=== PATIENT | female | born 1970 | race Hispanic/Latino ===

== ENCOUNTER 2017-06-04 10:46 | Emergency (ER) | payer BC ==
[2017-06-04 10:59] VITALS: BMI 19.3
[2017-06-04] MEDS ORDERED: Sodium Chloride 0.9% 1,000 ML IV STA (11:28)
[2017-06-04 11:53] LABS: BASO % 0.3 % (0.0-2.0); EOS % 0.1 % (0.0-4.0); LYMPH # 0.6 K/uL (1.0-4.3); LYMPH % 5.1 % (20.0-40.0); MEAN CELL VOLUME 91.9 fl (81.0-99.0); MEAN CORPUSCULAR HGB CONC 33.8 g/dL (33.0-37.0); MEAN PLATELET VOLUME 8.9 fl (7.2-11.7); MONO # 0.4 K/uL (0.0-0.8); MONO % 3.6 % (0.0-10.0); NEUT # 11.2 K/uL (1.8-7.0); NEUT % 90.9 % (50.0-75.0); PLATELET COUNT 183 K/uL (130-400); RED CELL DISTRIBUTION WIDTH 12.9 % (11.5-14.5); WHITE BLOOD COUNT 12.3 K/uL (4.8-10.8)
[2017-06-04 12:10] LABS: ALB/GLOB RATIO 1.5 (1.0-2.1); ALKALINE PHOSPHATASE 61 U/L (38-126); ALT/SGPT 27 U/L (9-52); AST/SGOT 27 U/L (14-36); BILIRUBIN,TOTAL 0.5 mg/dl (0.2-1.3); BLOOD UREA NITROGEN 10 mg/dl (7-17); CALCIUM 9.2 mg/dL (8.4-10.2); CARBON DIOXIDE 22 mmol/L (22-30); CHLORIDE 102 mmol/L (98-107); GFR AFRICAN-AMERICAN > 60; GLUCOSE,RANDOM 97 mg/dL (65-105); LIPASE 118 U/L (23-300); POTASSIUM 3.4 MMOL/L (3.6-5.0); SODIUM 137 mmol/l (132-148); TOTAL PROTEIN 7.4 G/DL (6.3-8.2)
--- NOTE | 2017-06-04 12:17 | ED PDOC ---
HPI: Abdomen Time Seen by Provider: 06/04/17 10:55 Chief Complaint (Nursing): Abdominal Pain Chief Complaint (Provider): Abdomianl pain History Per: Patient History/Exam Limitations: no limitations Onset/Duration Of Symptoms: Days (x1) Location Of Pain/Discomfort: Suprapubic Associated Symptoms: Vomiting, Diarrhea, Other (Dizziness & lightheadedness). denies: Fever, Chest Pain Additional Complaint(s): Jenifer Hager is a 46 year old female, with no past medical history, who presents to the emergency department complaining of constant lower abdominal pain associated with vomit, diarrhea, dizziness and lightheadedness onset since this morning. Patient reports the pain was worst earlier this morning but now feels better. She also reports loose stool and 1 episode of vomiting earlier today. Patient states she biked and then she took the bus, during which she began feeling dizzy. When she got up the pain got worst and felt dizzy like she was about to pass out. She states she developed pressure in her head and lightheaded with numbness and tingling in her hands. Patient denies chest pain or fever. She states she had an ovarian cyst removed many years ago. No further medical complaints. PMD: None provided. Past Medical History Reviewed: Historical Data, Nursing Documentation, Vital Signs Vital Signs: Last Vital Signs Temp 97.6 F 06/04/17 17:13 Pulse 78 06/04/17 17:13 Resp 19 06/04/17 17:13 BP 120/78 06/04/17 17:13 Pulse Ox 98 06/04/17 17:13 - Surgical History Other surgeries: Ovarian cyst removal - Family History Family History: States: Unknown Family Hx - Social History Current smoker - smoking cessation education provided: No Alcohol: Social Drugs: Denies - Allergies Allergies/Adverse Reactions: Allergies Allergy/AdvReac Type Severity Reaction Status Date / Time No Known Allergies Allergy Verified 06/04/17 11:06 Review of Systems ROS Statement: Except As Marked, All Systems Reviewed And Found Negative Constitutional: Negative for: Fever Cardiovascular: Positive for: Light Headedness. Negative for: Chest Pain Gastrointestinal: Positive for: Vomiting, Abdominal Pain (lower), Diarrhea Neurological: Positive for: Numbness (and tingling in her hands), Dizziness Physical Exam - Reviewed Nursing Documentation Reviewed: Yes Vital Signs Reviewed: Yes - Physical Exam Appears: Positive for: Well (appears comfortable), Non-toxic, No Acute Distress Head Exam: Positive for: ATRAUMATIC, NORMAL INSPECTION, NORMOCEPHALIC Skin: Positive for: Normal Color, Warm, Dry Eye Exam: Positive for: Normal appearance, EOMI, PERRL Neck: Positive for: Normal, Painless ROM, Supple Cardiovascular/Chest: Positive for: Regular Rate, Rhythm. Negative for: Murmur Respiratory: Positive for: Normal Breath Sounds. Negative for: Respiratory Distress Gastrointestinal/Abdominal: Positive for: Normal Exam, Bowel Sounds, Soft, Tenderness (suprapubic and lower abdominal) Back: Positive for: Normal Inspection (No midline tenderness). Negative for: L CVA Tenderness, R CVA Tenderness Extremity: Positive for: Normal ROM. Negative for: Pedal Edema, Deformity, Swelling Neurologic/Psych: Positive for: Alert, Oriented. Negative for: Motor/Sensory Deficits - Laboratory Results Result Diagrams: 06/04/17 11:45 06/04/17 11:45 - ECG ECG Rhythm: Positive for: Normal QRS, Sinus Rhythm (Normal). Negative for: ST/ T Changes Rate: 78 O2 Sat by Pulse Oximetry: 100 (RA) Pulse Ox Interpretation: Normal - Progress Re-evaluation Time: 16:35 Condition: Re-examined, Improved Medical Decision Making Medical Decision Making: Initial Impression: abdominal pain and dizziness. Differential includes: UTI and gastroenteritis, rule out appendicitis. For dizziness considered dehydration , vasovagal near syncope. Initial Plan: --Abd & Pelvis IV contrast only [CT] --EKG --Comp Metabolic Panel --Lipase --Troponin I --Urine --CBC w/ differential --Pepcid 20 mg IVP --NS IV 1,000 ml @ 1,000 mls/hr --Zofran Inj 4 mg IVP --reevaluation 1434 Abd & Pelvis CT FINDINGS: LOWER THORAX: Unremarkable. LIVER: Unremarkable. No gross lesion or ductal dilatation. GALLBLADDER AND BILE DUCTS: Unremarkable. PANCREAS: Unremarkable. No gross lesion or ductal dilatation. SPLEEN: Unremarkable. ADRENALS: Unremarkable. No mass. KIDNEYS AND URETERS: Unremarkable. No hydronephrosis. No solid mass. VASCULATURE: Unremarkable. No aortic aneurysm. BOWEL: Unremarkable. No obstruction. No gross mural thickening. APPENDIX: Not identified. No secondary findings to suggest acute appendicitis. PERITONEUM: Unremarkable. No free fluid. No free air. LYMPH NODES: Unremarkable. No enlarged lymph nodes. BLADDER: Unremarkable. REPRODUCTIVE: Normal uterus BONES: No acute fracture. OTHER FINDINGS: None. IMPRESSION: No acute abnormality. Unremarkable examination. Time: 14:34 --Abd/Pelvis CT FINDINGS: LOWER THORAX: Unremarkable. LIVER: Unremarkable. No gross lesion or ductal dilatation. GALLBLADDER AND BILE DUCTS: Unremarkable. PANCREAS: Unremarkable. No gross lesion or ductal dilatation. SPLEEN: Unremarkable. ADRENALS: Unremarkable. No mass. KIDNEYS AND URETERS: Unremarkable. No hydronephrosis. No solid mass. VASCULATURE: Unremarkable. No aortic aneurysm. BOWEL: Unremarkable. No obstruction. No gross mural thickening. APPENDIX: Not identified. No secondary findings to suggest acute appendicitis. PERITONEUM: Unremarkable. No free fluid. No free air. LYMPH NODES: Unremarkable. No enlarged lymph nodes. BLADDER: Unremarkable. REPRODUCTIVE: Normal uterus BONES: No acute fracture. OTHER FINDINGS: None. IMPRESSION: No acute abnormality. Unremarkable examination. Scribe Attestation: Documented by Bethel Young, acting as a scribe for Warner Howell MD Provider Scribe Attestation: All medical record entries made by the Scribe were at my direction and personally dictated by me. I have reviewed the chart and agree that the record accurately reflects my personal performance of the history, physical exam, medical decision making, and the department course for this patient. I have also personally directed, reviewed, and agree with the discharge instructions and disposition. Scribe Attestation: Documented by Letty Ramos, acting as a scribe for Warner Kamara MD. Provider Scribe Attestation: All medical record entries made by the Scribe were at my direction and personally dictated by me. I have reviewed the chart and agree that the record accurately reflects my personal performance of the history, physical exam, medical decision making, and the department course for this patient. I have also personally directed, reviewed, and agree with the discharge instructions and disposition. Disposition - Clinical Impression Clinical Impression: Abdominal pain, Dizziness - Patient ED Disposition Is Patient to be Admitted: No Doctor Will See Patient In The: Office Counseled Patient/Family Regarding: Studies Performed, Diagnosis, Need For Followup - Disposition Referrals: Shanti MCKEON,MD Opal [Medical Doctor] - Disposition: Routine/Home Disposition Time: 16:40 Condition: GOOD Additional Instructions: Return for worsening. Follow up with impress associate within 3 days. Instructions: Abdominal Pain (ED)
[2017-06-04] MEDS ORDERED: Sodium Chloride 0.9% 50 ML IV ONE (12:29)
[2017-06-04] MEDS ORDERED: Iohexol 300 100 ML IJ ONE (12:29)
[2017-06-04 13:14] LABS: NEUTROPHIL 91 % (42-75); TOTAL CELLS COUNTED 100
[2017-06-04 14:16] VITALS: RESP 19
--- NOTE | 2017-06-04 14:35 | CT ---
PROCEDURE: CT Abdomen and Pelvis with contrast HISTORY: lower abdominal pain COMPARISON: None. TECHNIQUE: Contrast dose: 95 mL Omnipaque 300 Radiation dose: Total exam DLP = 374.18 mGy-cm. This CT exam was performed using one or more of the following dose reduction techniques: Automated exposure control, adjustment of the mA and/or kV according to patient size, and/or use of iterative reconstruction technique. FINDINGS: LOWER THORAX: Unremarkable. LIVER: Unremarkable. No gross lesion or ductal dilatation. GALLBLADDER AND BILE DUCTS: Unremarkable. PANCREAS: Unremarkable. No gross lesion or ductal dilatation. SPLEEN: Unremarkable. ADRENALS: Unremarkable. No mass. KIDNEYS AND URETERS: Unremarkable. No hydronephrosis. No solid mass. VASCULATURE: Unremarkable. No aortic aneurysm. BOWEL: Unremarkable. No obstruction. No gross mural thickening. APPENDIX: Not identified. No secondary findings to suggest acute appendicitis. PERITONEUM: Unremarkable. No free fluid. No free air. LYMPH NODES: Unremarkable. No enlarged lymph nodes. BLADDER: Unremarkable. REPRODUCTIVE: Normal uterus BONES: No acute fracture. OTHER FINDINGS: None. IMPRESSION: No acute abnormality. Unremarkable examination.
[2017-06-04 15:07] VITALS: PULSE 78
[2017-06-04 17:15] VITALS: BP 120/78; TEMP 97.6
--- NOTE | 2017-06-05 10:37 | CARD ---
APPROVED REPORT EKG Measurement Heart [id number] <Conclusion> Normal sinus rhythm Left axis deviation Low voltage QRS Abnormal ECG
[2017-06-06 07:14] VITALS: O2SAT 100
== END 2017-06-04 17:14 | disposition home or self-care (01) ==
LOC: H.ER 10:46
DX: R10.9 Unspecified abdominal pain (principal); R42 Dizziness and giddiness
CPT/HCPCS: 74177; 80053; 81025; 82948; 83690; 84484; 85025; 93005; 96374; 96375; 99284; J2405; J7040; Q9967